=== PATIENT | female | born 1985 | race Two or more races ===

== ENCOUNTER 2017-08-26 00:20 | Inpatient (IN) | payer OTHER, MEDICAID ==
[~2017-08-26] VITALS: Ht 162.6 cm; Wt 72.2 kg
[~2017-08-26 00:20] MED LIST: PRENATAL VITAMIN
[2017-08-26] MEDS ORDERED: LIDOCAINE 1%, 20ML ONE (00:28)
[2017-08-26] MEDS ORDERED: OXYTOCIN 30U/ 0.9% NaCL 500ML 500 ML ONE ×2 (00:29→01:52)
[2017-08-26] MEDS ORDERED: MISOPROSTOL 200 MCG TABLET ONE (00:29)
[2017-08-26] MEDS ORDERED: OXYTOCIN 30U/ 0.9% NaCL 500ML 500 ML IV ONE (00:32)
[2017-08-26] MEDS ORDERED: AMPICILLIN 2 GM in SODIUM CHLORIDE 0.9% 100 ML IVPB STA (00:32)
[2017-08-26] MEDS ORDERED: D5%-LACTATED RINGERS 1,000 ML IV SCH (00:32)
[2017-08-26] MEDS ORDERED: LACTATED RINGERS 1,000 ML IV SCH (00:32)
[2017-08-26] MEDS ORDERED: FENTANYL PF 100 MCG/2ML ONE (00:35)
[2017-08-26] MEDS ORDERED: NEWBORN KIT ONE (00:39)
[2017-08-26 00:43] VITALS: BP 127/66
[2017-08-26] MEDS ORDERED: FENTANYL PF 100 MCG/2ML IV PRN (01:00)
[2017-08-26] MEDS ORDERED: FENTANYL PF 100 MCG/2ML IVPush PRN (01:00)
[2017-08-26] MEDS ORDERED: ONDANSETRON 2MG/ML, 2ML IVPush PRN (01:00)
[2017-08-26 01:18] LABS: BASOPHILS # (AUTO) 0.02 x10^3/uL (0-0.1); BASOPHILS % (AUTO) 0 % (0-1); EOSINOPHILS # (AUTO) 0.12 x10^3/uL (0-0.4); EOSINOPHILS % (AUTO) 1 % (1-7); LYMPHOCYTES % (AUTO) 16 % (22-44); MD NO; MEAN CORPUSCULAR HGB CONC 34.7 g/dL (32.4-35.8); MEAN CORPUSCULAR VOLUME 92.2 fL (80-100); MEAN PLATELET VOLUME 9.2 fL (7.4-10.4); MONOCYTES # (AUTO) 1.35 x10^3/uL (0.2-0.8); MONOCYTES % (AUTO) 9 % (2-9); NEUTROPHILS # (AUTO) 11.49 x10^3/uL (1.8-6.8); NEUTROPHILS % (AUTO) 75 % (42-75); PLATELET COUNT 171 x10^3/uL (130-400); RED BLOOD COUNT 4.14 x10^6/uL (3.82-5.3); RED CELL DISTRIBUTION WIDTH 14.2 % (9.6-15.2)
[2017-08-26] MEDS ORDERED: IBUPROFEN 800 MG TABLET ONE (01:25)
[2017-08-26] MEDS ORDERED: MISOPROSTOL 200 MCG TABLET PR PRN (01:30)
[2017-08-26] MEDS ORDERED: IBUPROFEN 600 MG TABLET ONE (01:31)
[2017-08-26] MEDS: IBUPROFEN 600 MG TABLET PO PRN ×3 (01:32→19:43)
[2017-08-26] MEDS: OXYTOCIN 30U/ 0.9% NaCL 500ML 500 ML IV SCH ×3 (01:53→21:22)
[2017-08-26 03:45] VITALS: BP 101/55
[2017-08-26 07:15] VITALS: BP 102/60
[2017-08-26] MEDS: PRENATAL VIT/IRON/FA 1 EACH TABLET PO SCH (08:00)
[2017-08-26] MEDS: DOCUSATE 100 MG CAPSULE PO PRN ×2 (08:01→19:43)
[2017-08-26 10:20] LABS: BASOPHILS # (AUTO) 0.07 x10^3/uL (0-0.1); BASOPHILS % (AUTO) 1 % (0-1); EOSINOPHILS # (AUTO) 0.04 x10^3/uL (0-0.4); EOSINOPHILS % (AUTO) 0 % (1-7); LYMPHOCYTES # (AUTO) 1.31 x10^3/uL (1-3.4); LYMPHOCYTES % (AUTO) 8 % (22-44); MD NO; MEAN CORPUSCULAR HEMOGLOBIN 31.7 pg (27.0-34.8); MEAN CORPUSCULAR HGB CONC 34.2 g/dL (32.4-35.8); MEAN CORPUSCULAR VOLUME 92.8 fL (80-100); MEAN PLATELET VOLUME 9.2 fL (7.4-10.4); MONOCYTES # (AUTO) 0.85 x10^3/uL (0.2-0.8); MONOCYTES % (AUTO) 5 % (2-9); NEUTROPHILS # (AUTO) 14.01 x10^3/uL (1.8-6.8); NEUTROPHILS % (AUTO) 86 % (42-75); PLATELET COUNT 159 x10^3/uL (130-400); RED BLOOD COUNT 4.07 x10^6/uL (3.82-5.3); RED CELL DISTRIBUTION WIDTH 14.5 % (9.6-15.2)
[2017-08-26 12:15] VITALS: BP 107/68
[2017-08-26 16:05] VITALS: BP 101/65
[2017-08-26 19:38] VITALS: BP 104/63
[2017-08-27 00:45] VITALS: BP 101/62
[2017-08-27] MEDS: IBUPROFEN 600 MG TABLET PO PRN ×3 (04:30→19:46)
[2017-08-27] MEDS: OXYTOCIN 30U/ 0.9% NaCL 500ML 500 ML IV SCH ×2 (07:22→17:22)
[2017-08-27 07:50] VITALS: BP 102/69
[2017-08-27] MEDS: PRENATAL VIT/IRON/FA 1 EACH TABLET PO SCH (09:00)
[2017-08-27] MEDS: OXYcodone/APAP 5/325MG TABLET PO PRN ×2 (11:30→21:02)
[2017-08-27 19:45] VITALS: BP 113/75
[2017-08-27] MEDS: DOCUSATE 100 MG CAPSULE PO PRN (19:46)
[2017-08-27] MEDS ORDERED: DIPH,PERTUSS(ACELL),TET VAC/PF NC IM-VACC ONE (20:00)
[2017-08-28] MEDS: OXYTOCIN 30U/ 0.9% NaCL 500ML 500 ML IV SCH (03:22)
[2017-08-28] MEDS: IBUPROFEN 600 MG TABLET PO PRN (03:28)
[2017-08-28] MEDS ORDERED: PREN1TAB60 PO (07:23)
[2017-08-28] MEDS ORDERED: IBUP-1222 PO (07:23)
[2017-08-28] MEDS ORDERED: OXYC-302 PO (07:30)
[2017-08-28 07:40] VITALS: BP 107/70
[2017-08-28] MEDS: DOCUSATE 100 MG CAPSULE PO PRN (10:48)
[2017-08-28] MEDS: PRENATAL VIT/IRON/FA 1 EACH TABLET PO SCH (10:48)
== END 2017-08-28 14:35 | disposition home or self-care (01) | DRG 775 ==
LOC: LDOP 00:20 → LDIP 00:29 → 2NW 03:10
PROVIDERS: ADMIT Obstetrics & Gynecology; ATTEND Obstetrics & Gynecology
PROC: 10E0XZZ Delivery of Products of Conception, External Approach (ICD-10-PCS; principal; 2017-08-26)
DX: O69.81X0 Labor and delivery complicated by cord around neck, without compression, not applicable or unspecified (principal); O99.824 Streptococcus B carrier state complicating childbirth; Z37.0 Single live birth; Z86.32 Personal history of gestational diabetes
CPT/HCPCS: 36415; 82962; 85025; 86850; 86900; 90715; J0290; J3010; J2590; J7120

== ENCOUNTER 2020-04-29 13:54 | Emergency (ER) | payer OTHER, MEDICAID ==
[~2020-04-29] VITALS: Ht 162.6 cm; Wt 66.5 kg
[~2020-04-29 13:54] MED LIST changes: +IBUP-1222 PO; +OXYC-302 PO; +PREN1TAB60 PO
[2020-04-29 15:51] VITALS: BP 114/77
--- NOTE | 2020-04-29 15:52 | NUR ---
RADIOLOGY AT BEDSIDE FOR CHEST X-RAY. PT HAS CONTINUOUS SPO2 AND CARDIAC MONITORING IN PLACE. VSS. DR. SULLIVAN AT BEDSIDE FOR PHYSICAL EXAM AND TO DISCUSS POC. CALL LIGHT W/IN REACH, PT VERBALIZED INSTRUCTIONS ON USE. Addendum: 04/29/20 at 1553 by VINCE PT INSTRUCTED ON USE, VERBALIZED UNDERSTANDING.
--- NOTE | 2020-04-29 15:54 | NUR ---
REPORT TO SIDDHARTHA CERDA.
== END 2020-04-29 16:30 ==
LOC: ED 16:15
DX: B34.9 Viral infection, unspecified (principal); R07.89 Other chest pain; R06.00 Dyspnea, unspecified; R94.31 Abnormal electrocardiogram [ECG] [EKG]
CPT/HCPCS: 71045; 93005; 99283

== ENCOUNTER 2020-07-10 17:19 | Emergency (ER) | payer OTHER, MEDICAID ==
[~2020-07-10] VITALS: Ht 162.6 cm; Wt 65.5 kg
--- NOTE | 2020-07-10 18:15 | NUR ---
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
--- NOTE | 2020-07-10 18:40 | NUR ---
PT TO ROOM 9 FROM US. PT STATES SHE WAS SEEN A FEW DAYS AGO FOR SPOTTING. STATES HER US SHOWED PT TO BE 4 WKS AT THAT TIME. PT HAS CONTINUED TO SPOT BROWN TINGED. PT DENIES CRAMPING. STATES SHE IS UNSURE IF SHE REMAINS AND WAS TOLD TO COME BACK TO ED IF SPOTTING CONTINUED. PT RESTING ON [address] [employer]. ALEKSANDRA. JADAS.
[2020-07-10 18:41] VITALS: BP 108/67
== END 2020-07-10 19:33 | disposition home or self-care (01) ==
LOC: ED 18:27
DX: O03.9 Complete or unspecified spontaneous abortion without complication (principal)
CPT/HCPCS: 36415; 76801; 84702; 99284